=== PATIENT | male | born 1980 | race African-American/Black ===

== ENCOUNTER 2016-10-31 01:10 | Emergency (ER) | payer OTHER ==
[2016-10-31] MEDS ORDERED: MAG HYDROX/AL HYDROX/SIMETH 30 ML, HYOSCYAMINE ELIXIR 10 ML, CIMETIDINE HCL 300 MG, LID... PO STA ×4 (01:48)
--- NOTE | 2016-10-31 02:26 | ED ---
Nausea/Vomiting/Diarrhea HPI - General Chief complaint: Nausea/Vomiting/Diarrhea Stated complaint: acid reflux Time Seen by Provider: 10/31/16 01:40 Source: patient Mode of arrival: ambulatory Limitations: no limitations - Related Data Previous Rx's Medication Instructions Recorded Famotidine [Pepcid] 20 mg PO BID #20 tablet 10/31/16 Omeprazole 20 mg PO DAILY #15 cap 10/31/16 Allergies Allergy/AdvReac Type Severity Reaction Status Date / Time No Known Allergies Allergy Verified 10/31/16 01:28 Review of Systems ROS Statement: Those systems with pertinent positive or pertinent negative responses have been documented in the HPI. ROS Other: All systems not noted in ROS Statement are negative. Past Medical History Past Medical History: No Reported History History of Any Multi-Drug Resistant Organisms: None Reported Past Surgical History: No Surgical Hx Reported Past Psychological History: No Psychological Hx Reported Smoking Status: Never smoker Past Alcohol Use History: Occasional Past Drug Use History: None Reported General Exam Limitations: no limitations Course Vital Signs 10/31/16 01:24 Temperature 98 F Pulse Rate 89 Respiratory 20 Rate Blood Pressure 135/79 O2 Sat by Pulse 99 Oximetry Disposition Clinical Impression: GERD (gastroesophageal reflux disease) Disposition: HOME SELF-CARE Condition: Good Instructions: Gastroesophageal Reflux in Children (ED) Additional Instructions: Patient advised to avoid acidic foods including coffee, tomatoes, orange juice and other hot and spicy foods. Patient should take the medication as directed. Follow-up with a primary care provider. Also recommend following up with GI. Return to the emergency department if any alarming signs or symptoms occur. Prescriptions: Famotidine [Pepcid] 20 mg PO BID #20 tablet Omeprazole 20 mg PO DAILY #15 cap Referrals: Lori Salamanca MD [STAFF PHYSICIAN] - 1-2 days Time of Disposition: 02:22
[2016-10-31 02:41] VITALS: BP 132/58; PULSE 63; RESP 16; TEMP 97.8
--- NOTE | 2016-10-31 02:44 | XR ---
EXAM: XR Chest, 2 Views CLINICAL HISTORY: Pain. History of asthma. TECHNIQUE: Frontal and lateral views of the chest. COMPARISON: No relevant prior studies available. FINDINGS: Lungs: No focal consolidation. No evidence of pulmonary edema. Pleural space: No pleural effusion. No pneumothorax. Heart: Unremarkable. No cardiomegaly. Mediastinum: Unremarkable. Bones/joints: Unremarkable. IMPRESSION: No evidence of acute cardiopulmonary process.
== END 2016-10-31 02:40 | disposition home or self-care (01) ==
LOC: EC 01:10
DX: K21.9 Gastro-esophageal reflux disease without esophagitis (principal)
CPT/HCPCS: 71020; 99283

== ENCOUNTER 2017-07-24 08:40 | Emergency (ER) | payer OTHER ==
[2017-07-24 08:57] VITALS: TEMP 98.4
--- NOTE | 2017-07-24 09:22 | ED ---
Back Pain HPI - General Chief Complaint: Back Pain/Injury Stated Complaint: back/thigh pain Time Seen by Provider: 07/24/17 09:04 Source: patient, RN notes reviewed, old records reviewed Limitations: no limitations - History of Present Illness Initial Comments: This patient is a 37-year-old male presents for his reid today chief complaint of lower back pain rating down his right leg. He relates that he is had the symptoms for the past 2 months. He reports that he has not done any heavy lifting or strenuous activity to cause the symptoms. He states that he's had no known history of back issues. He relates he has no saddle anesthesias. Denies any changes in urination or bowel habits. He reports the pain is worse with range of motion of his leg and hip. He patient reports he has numbness and tingling that radiates down the leg.Patient denies any recent fever, chills , shortness of breath, chest pain, abdominal pain, nausea vomiting, , dysuria or hematuria, constipation or diarrhea, headaches or visual changes, or any other current symptoms - Related Data Previous Rx's Medication Instructions Recorded Omeprazole 20 mg PO DAILY #15 cap 10/31/16 Acetaminophen-Codeine 300-30mg 1 tab PO Q4H PRN #12 tablet 07/24/17 [Tylenol #3] Cyclobenzaprine [Flexeril] 10 mg PO TID #15 tab 07/24/17 Dexamethasone 0.75 mg PO DAILY #12 tab 07/24/17 Allergies Allergy/AdvReac Type Severity Reaction Status Date / Time No Known Allergies Allergy Verified 07/24/17 09:05 Review of Systems ROS Statement: Those systems with pertinent positive or pertinent negative responses have been documented in the HPI. ROS Other: All systems not noted in ROS Statement are negative. Past Medical History Past Medical History: No Reported History History of Any Multi-Drug Resistant Organisms: None Reported Past Surgical History: No Surgical Hx Reported Past Psychological History: No Psychological Hx Reported Smoking Status: Never smoker Past Alcohol Use History: Occasional Past Drug Use History: None Reported General Exam - General Exam Comments Initial Comments: 37-year-old male. Alert and oriented. No distress. Limitations: no limitations General appearance: alert, in no apparent distress Head exam: Present: atraumatic, normocephalic, normal inspection Eye exam: Present: normal appearance, PERRL, EOMI. Absent: scleral icterus, conjunctival injection, periorbital swelling ENT exam: Present: normal exam, mucous membranes moist Neck exam: Present: normal inspection. Absent: tenderness, meningismus, lymphadenopathy Respiratory exam: Present: normal lung sounds bilaterally. Absent: respiratory distress, wheezes, rales, rhonchi, stridor Cardiovascular Exam: Present: regular rate, normal rhythm, normal heart sounds. Absent: systolic murmur, diastolic murmur, rubs, gallop, clicks Extremities exam: Present: normal inspection, full ROM, normal capillary refill. Absent: tenderness, pedal edema, joint swelling, calf tenderness Right Hip exam: Present: full ROM, tenderness (Patient has tenderness over the sciatic notch near the piriformis muscle.). Absent: normal inspection, swelling , abrasion Upper Leg exam: Present: normal inspection, full ROM Knee exam: Present: normal inspection, full ROM Neurovascular tendon exam: Present: no vascular compromise Gait: observed and normal Back exam: Present: normal inspection, paraspinal tenderness (Lumbar spine paraspinal tenderness over the right side.) Expanded Back exam: Sciatic Notch Tenderness: Right, Positive Straight Leg Raise: Right Neurological exam: Present: alert, oriented X3, CN II-XII intact Psychiatric exam: Present: normal affect, normal mood Skin exam: Present: warm, dry, intact, normal color. Absent: rash Course Vital Signs 07/24/17 08:53 Temperature 98.4 F Pulse Rate 85 Respiratory 16 Rate Blood Pressure 137/90 O2 Sat by Pulse 98 Oximetry Medical Decision Making - Medical Decision Making 37 show is raised department today with chief complaint of lower back pain rating on the right leg. He's had this pain off and on for the past few months. It's worse today with going to leg. He is tender over the sciatic notch appear pharmacy area. X-ray lumbar spine was reviewed and shows no significant abnormalities. There is some straightening of the lumbar spine consistent with a muscle spasm. We'll treat the patient at this time with a course of steroids, muscle relaxers and pain medication. Discussed appropriate follow-up with orthopedic or primary care provider. Discussed stretches. Patient agrees to treatment plan will comply. Return parameters were discussed. - Radiology Data Radiology results: report reviewed Straightening of the lumbar spine otherwise unremarkable study noted. Lumbar spine shows straightening alignment without evidence of acute fracture dislocation vertebral body height normal. Overlying tissue appears unremarkable. This was read by Dr. gibbs. Disposition Clinical Impression: Injury of sciatic nerve at hip and thigh level, right leg, initial encounter Disposition: HOME SELF-CARE Condition: Good Instructions: Acute Low Back Pain (ED), Sciatica (ED) Additional Instructions: Patient advised to follow-up with primary care provider. Take the medication as prescribed. Return to the emergency department if any alarming signs or symptoms occur. Recommended doing heat and ice for 20 minutes and passive stretching. Prescriptions: Acetaminophen-Codeine 300-30mg [Tylenol #3] 1 tab PO Q4H PRN #12 tablet PRN Reason: Pain Cyclobenzaprine [Flexeril] 10 mg PO TID #15 tab Dexamethasone 0.75 mg PO DAILY #12 tab Referrals: None,Stated [Primary Care Provider] - 1-2 days Michelet Rueda MD [STAFF PHYSICIAN] - 1-2 days Time of Disposition: 10:09
[2017-07-24] MEDS ORDERED: CYCLOBENZAPRINE 10MG STARTER 3 TAB BTL PO STA (09:23)
--- NOTE | 2017-07-24 09:56 | XR ---
EXAMINATION TYPE: XR lumbar spine 2 or 3V DATE OF EXAM: 07/24/2017 CLINICAL HISTORY: Low back pain down into right leg upon waking up this morning. TECHNIQUE: Frontal and lateral images of the lumbar spine are obtained. COMPARISON: None FINDINGS: There are 5 lumbar type vertebral bodies identified. The lumbar spine shows straightened alignment without evidence of acute fracture or dislocation. Vertebral body heights and disk space he ights are within normal limits. The overlying soft tissue appears unremarkable. IMPRESSION: Straightening of lumbar spine otherwise unremarkable study.
[2017-07-24 10:24] VITALS: BP 127/82; PULSE 80; RESP 18
== END 2017-07-24 10:24 | disposition home or self-care (01) ==
LOC: EC 08:40
DX: S74.01XA Injury of sciatic nerve at hip and thigh level, right leg, initial encounter (principal); M54.5 Low back pain
CPT/HCPCS: 72100; 99284

== ENCOUNTER 2022-03-23 20:10 | Emergency (ER) | payer OTHER ==
[2022-03-23 20:21] VITALS: BP 129/87; PULSE 88; RESP 16; TEMP 97.7
[2022-03-23] MEDS ORDERED: AMOXIC-POT CLAV 875MG STARTER PACK 2 TAB BTL PO STA (20:47)
--- NOTE | 2022-03-23 20:50 | ED ---
ENT HPI - General Chief complaint: ENT Stated complaint: earache Time Seen by Provider: 03/23/22 20:23 Source: patient, RN notes reviewed Mode of arrival: ambulatory Limitations: no limitations - History of Present Illness Initial comments: This is a 41-year-old male who presents to the emergency department for right ear pain. Symptoms started 3 days ago, and he states that it is getting worse. He is also complaining of sinus congestion. Denies any coughing, fevers, or chills. He does not have a history of ear infections. Denies any drainage from the ears. Denies any fevers, chills, sore throat, cough, dyspnea, chest pain, palpitations, abdominal pain, nausea, vomiting, diarrhea, back pain, or headaches. MD complaint: ear pain Onset/Timin -: days(s) Location: R ear - Related Data Previous Rx's Medication Instructions Recorded Omeprazole 20 mg PO DAILY #15 cap 10/31/16 Acetaminophen-Codeine 300-30mg 1 tab PO Q4H PRN #12 tablet 07/24/17 [Tylenol #3] dexAMETHasone 0.75 mg PO DAILY #12 tab 07/24/17 Cyclobenzaprine [Flexeril] 10 mg PO TID #15 tab 12/05/21 predniSONE 50 mg PO DAILY #5 tab 12/05/21 Amoxic-Pot Clav 875-125Mg 1 tab PO Q12HR 7 Days #14 tab 03/23/22 [Augmentin 875-125] Yeeaiatl-Sdjgtfmvf-Ih Otic 4 drops RIGHT EAR Q6H 7 Days #10 ml 03/23/22 [Cortisporin Otic Soln] Allergies Allergy/AdvReac Type Severity Reaction Status Date / Time No Known Allergies Allergy Verified 12/05/21 05:19 Review of Systems ROS Statement: Those systems with pertinent positive or pertinent negative responses have been documented in the HPI. ROS Other: All systems not noted in ROS Statement are negative. Past Medical History Past Medical History: No Reported History History of Any Multi-Drug Resistant Organisms: None Reported Past Surgical History: No Surgical Hx Reported Past Psychological History: No Psychological Hx Reported Smoking Status: Never smoker Past Alcohol Use History: Occasional Past Drug Use History: Marijuana General Exam Limitations: no limitations General appearance: alert, in no apparent distress Head exam: Present: atraumatic, normocephalic, normal inspection ENT exam: Present: other (Right TM and canal erythema with bulging) Respiratory exam: Present: normal lung sounds bilaterally. Absent: respiratory distress, wheezes, rales, rhonchi, stridor Cardiovascular Exam: Present: regular rate, normal rhythm, normal heart sounds. Absent: systolic murmur, diastolic murmur, rubs, gallop, clicks Neurological exam: Present: alert, oriented X3, CN II-XII intact Psychiatric exam: Present: normal affect, normal mood Skin exam: Present: warm, dry, intact, normal color. Absent: rash Course Vital Signs 03/23/22 20:19 Temperature 97.7 F Pulse Rate 88 Respiratory 16 Rate Blood Pressure 129/87 O2 Sat by Pulse 99 Oximetry Medical Decision Making - Medical Decision Making This is a 41-year-old male who presents to the emergency department for an ear infection. Physical examination consistent with otitis media and otitis externa. Prescription for Augmentin and Cortisporin eardrops provided with dosing instructions reviewed. Advised ibuprofen and Tylenol for pain relief. Return precautions reviewed in depth, the patient is instructed to return to the emergency department with any new, worsening, or concerning symptoms. Patient verbalized understanding. This case was discussed in detail with the attending ED physician. Presentation, findings, and treatment plan discussed in detail as well. Disposition Clinical Impression: Otitis media, Otitis externa Disposition: HOME SELF-CARE Instructions (If sedation given, give patient instructions): Ear Infection (ED) Additional Instructions: Return to the emergency department with any new, worsening, or concerning symptoms. Take the antibiotic as prescribed for 7 days. Use the eardrops as 4 drops to the right ear 4 times daily for 7 days. You can also apply warm heat to the ear for additional relief and alternate with ibuprofen and Tylenol for discomfort. Follow up with your primary care provider in 1-2 days. Prescriptions: Amoxic-Pot Clav 875-125Mg [Augmentin 875-125] 1 tab PO Q12HR 7 Days #14 tab Ostrnmup-Qxofbglmj-Gk Otic [Cortisporin Otic Soln] 4 drops RIGHT EAR Q6H 7 Days #10 ml Is patient prescribed a controlled substance at d/c from ED?: No Referrals: Luzma Navas MD [Primary Care Provider] - 1-2 days
== END 2022-03-23 20:58 | disposition home or self-care (01) ==
LOC: EC 20:10
DX: H66.91 Otitis media, unspecified, right ear (principal); H60.91 Unspecified otitis externa, right ear; F12.90 Cannabis use, unspecified, uncomplicated
CPT/HCPCS: 99282